=== PATIENT | female | born 1960 | race American Indian/Alaskan Native ===

== ENCOUNTER 2017-01-24 08:37 | Day surgery (SDC) | payer MEDICAID ==
[~2017-01-24 08:37] MED LIST: NACL 0.9% 1000 ML 1,000 ML ONE
[2017-01-24] MEDS ORDERED: NACL 0.9% 1000 ML 1,000 ML IV SCH (09:00)
== END 2017-01-24 08:38 | disposition home or self-care (01) ==
LOC: GIO 08:37
PROVIDERS: ATTEND Internal Medicine Gastroenterology
DX: R10.13 Epigastric pain (principal); K21.9 Gastro-esophageal reflux disease without esophagitis; Z53.9 Procedure and treatment not carried out, unspecified reason
CPT/HCPCS: J7030